=== PATIENT | female | born 1990 | race Caucasian/White ===

== ENCOUNTER → 2018-05-08 | Outpatient (CLI) | payer OTHER | LOC: FIMAGING 07:58 | PROVIDERS: ATTEND Ophthalmology | DX: K80.20 Calculus of gallbladder without cholecystitis without obstruction (principal); K83.8 Other specified diseases of biliary tract ==

== ENCOUNTER 2018-06-09 12:07 | Inpatient (IN) | payer OTHER ==
[2018-06-09] MEDS ORDERED: NS 1,000 ML IV ONE (13:27)
[2018-06-09] MEDS ORDERED: FAMOTIDINE 20 MG/NACL 50 ML IV ONE (13:27)
[2018-06-09] MEDS ORDERED: ONDANSETRON 4 MG/2 ML VIAL IVP PRN ×2 (13:27→15:27)
--- NOTE | 2018-06-09 13:29 | EDPHY ---
General Time Seen by Provider: 06/09/18 13:28 Narrative: CLINICAL IMPRESSION: Crohn's, sigmoid jejunal fistula, small bowel strictures with inflammation ASSESSMENT/PLAN: Patient is a 28-year-old female with no significant medical history presents to the emergency department with 6 days of intermittent epigastric and generalized abdominal cramping as well as nausea, fever and loose stools. Patient is afebrile, she is not toxic appearing. CBC revealed leukocytosis of 10,000. BMP grossly unremarkable. negative. 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 History and physical examination is consistent with acute Crohn's with associated stricture and fistula. Case was discussed with her General Surgeon Dr. Carrion, Gastroenterology Dr. Rm Calderon as well as hospitalist Dr. Blanchard. The patient will be admitted to the hospitalist service for further observation and management. On repeat examination and prior to transfer to the floor her pain was escalating however her abdomen was soft with no peritoneal signs. She was given a dose of pain medication with improvement of her discomfort. The patient otherwise remained hemodynamically stable. DIFFERENTIAL DX: Abdominal pain including but not limited to appendicitis, cholecystitis, gastritis and urinary tract infection. ED COURSE: 1335: Case discussed with Dr. Byrd 1433: Case discussed with Dr. Darling, findings suggestive of Crohn's. She has multifocal strictures, sigmoid jejunal fistula as well as stricture in the hepatic flexure with inflammation. 1435: Case discussed with Dr. Carrion, he will follow. 1438: Discussed findings with patient, her abdomen is soft with diffuse nonfocal tenderness to palpation. No evidence of a surgical abdomen. 1440: Case discussed with Dr. Blanchard, she will be the admitting physician. 1448: Gastroenterology paged, discussed case with Dr. Rm Calderon, he will continue to follow patient as well. CHIEF COMPLAINT: Abdominal pain, nausea HPI: Patient is a 28-year-old female with no significant medical history who presents to the emergency department with epigastric cramping and generalized abdominal pain. Patient reports she is on day 6 of intermittent epigastric pain with generalized discomfort. Pain is described as both sharp and crampy, it waxes and wanes in intensity and at times is completely gone. She does report a similar episode several months prior, lasted several days however resolved on its own. It has come and gone several other times. She was diagnosed with a large gallstone and subsequently had a laparoscopic cholecystectomy performed by Dr. Carrion. She was symptom free for approximately 2 weeks and then 6 days prior had a sudden onset of epigastric and colicky generalized abdominal pain. She does report a temperature of a 100 degrees last , nausea however no vomiting. She denies any episodes of ever having bloody stool. Over the last several days she was experiencing constipation and now is experiencing multiple liquid stools per day. She denies any urinary symptoms to include dysuria, hematuria or frequency. Last menstrual period was about 3 and half weeks ago, normal. She denies any pelvic pain, vaginal pain or vaginal bleeding. PMH: Denies Pertinent Past Surgical History: Lap choly Family History: Not contributory Social History: Denies cigarette smoking or illicit drug use REVIEW OF SYSTEMS: All other systems negative Constitutional: Fever, decreased appetite. Eyes: No discharge, vision change ENT: No sore throat, congestion, ear pain. Cardiovascular: No chest pain, no palpitations. Respiratory: No cough, no shortness of breath. Gastrointestinal: Abdominal pain, nausea, diarrhea. Genitourinary: No hematuria, dysuria, flank pain, pelvic pain Musculoskeletal: No back pain, joint swelling, joint pain, myalgias. Skin: No rashes, color change. Neurological: No headache, dizziness, weakness. PHYSICAL EXAM: General Appearance: Alert, mildly uncomfortable appearing however not toxic- appearing.. HENT: Normocephalic, atraumatic. Bilateral external ears are normal. Bilateral tympanic membranes are normal with pearly jackson reflex. Nares are clear, mucosa is pink. Oropharynx is clear, uvula is midline. There is no tonsillar enlargement or exudate. Eyes: PERRLA, no acute vision change, nystagmus, swelling, discharge, pain or photosensitivity. Conjunctiva pink, no pallor or injection Neck: Supple, nontender, no lymphadenopathy. Respiratory: There are no retractions, lungs are clear to auscultation. Cardiac: Mild tachycardia, no murmurs or gallops. Gastrointestinal: Patient's abdomen is soft and nondistended. She has diffuse, nonfocal tenderness to palpation without rebound or guarding. Bowel sounds are present. Neurological: Alert and oriented x 3, CN 2-12 grossly intact. Skin: Warm, dry, no rashes, no nodules on palpation. Musculoskeletal: Extremities are symmetrical, full range of motion, no tenderness, deformity, swelling, or erythema. Psychiatric: Patient is oriented X 3, there is no agitation. MEDICAL DECISION MAKING: Patient was seen independently. Secondary supervising physician at time of evaluation was Dr. Byrd. Diagnosis: Crohn's with sigmoid jejunal fistula and multiple strictures. New, requires workup Summary: See Assessment and Plan for summary of ED visit Clinical lab tests: ordered / reviewed. Independent visualization of images, tracing, or specimens: Yes. Decision to obtain medical records or history from someone other than the patient: No Review / Summarize previous medical records: Yes Discussed patient with another provider: Yes, Dr. Byrd, Dr. Blanchard and Dr. Carrion Patient Progress: Stable, admit. - Diagnostics Imaging Results: Imaging Impressions Abdomen X-Ray 06/09/18 13:28 Impression: Normal bowel pattern. Mild constipation. No acute process. Abdomen CT 06/09/18 13:33 Impression: 1. Crohn's disease with multiple areas of bowel thickening and stricture involving the distal jejunum, mid sigmoid, and colonic hepatic flexure region with associated sigmoid-jejunal fistula in the left midabdomen. 2. No CT evidence of appendicitis or drainable abscess. 3. Prior cholecystectomy. Findings and recommendations discussed with Emergency Department physician, JOSUE Lomax at 1436 hours on June 09, 2018. Final report concurs with initial preliminary interpretation. Cosign: Dr. Rodrigo Pierce. - History Smoking Status: Never smoked - Objective Vital Signs: Initial Vital Signs Temperature (C) 37.3 C 06/09/18 12:21 Heart Rate 104 H 06/09/18 12:21 Respiratory Rate 18 04/16/19 12:21 Blood Pressure 99/74 L 06/09/18 12:21 O2 Sat (%) 96 06/09/18 12:21 O2 Delivery Mode Room Air Allergies/Adverse Reactions: morphine Allergy (Verified 06/09/18 12:21) Home Medications: Medication Instructions Recorded Dicyclomine 06/09/18 Junel 1 mg-20 Mcg Tablet 06/09/18 Laboratory Results: Laboratory Results 06/09/18 13:06 06/09/18 13:06 06/09/18 06/09/18 06/09/18 13:06 13:06 13:06 WBC 10.38 10^3/uL H 10^3/uL (3.80-9.50) RBC 4.79 10^6/uL 10^6/uL (4.18-5.33) Hgb 14.1 g/dL g/dL (12.6-16.3) Hct 42.9 % % (38.0-47.0) MCV 89.6 fL fL (81.5-99.8) MCH 29.4 pg pg (27.9-34.1) MCHC 32.9 g/dL g/dL (32.4-36.7) RDW 12.5 % % (11.5-15.2) Plt Count 691 10^3/uL H 10^3/uL (150-400) MPV 7.9 fL L fL (8.7-11.7) Neut % (Auto) 87.1 % H % (39.3-74.2) Lymph % (Auto) 5.4 % L % (15.0-45.0) [place] % (Auto) 6.6 % % (4.5-13.0) Eos % (Auto) 0.3 % L % (0.6-7.6) Baso % (Auto) 0.3 % % (0.3-1.7) Nucleat RBC Rel Count 0.0 % % (0.0-0.2) Absolute Neuts (auto) 9.04 10^3/uL H 10^3/uL (1.70-6.50) Absolute Lymphs (auto) 0.56 10^3/uL L 10^3/uL (1.00-3.00) Absolute Monos (auto) 0.69 10^3/uL 10^3/uL (0.30-0.80) Absolute Eos (auto) 0.03 10^3/uL 10^3/uL (0.03-0.40) Absolute Basos (auto) 0.03 10^3/uL 10^3/uL (0.02-0.10) Absolute Nucleated RBC 0.00 10^3/uL 10^3/uL (0-0.01) Immature Gran % 0.3 % % (0.0-1.1) Immature Gran # 0.03 10^3/uL 10^3/uL (0.00-0.10) RBC/WBC/PLT Morphology TNP Platelet Estimate TNP Sodium 136 mEq/L mEq/L (135-145) Potassium 3.9 mEq/L mEq/L (3.5-5.2) Chloride 102 mEq/L mEq/L (97-110) Carbon Dioxide 18 mEq/l L mEq/l (22-31) Anion Gap 16 mEq/L H mEq/L (6-14) BUN 12 mg/dL mg/dL (7-23) Creatinine 0.8 mg/dL mg/dL (0.6-1.0) Estimated GFR > 60 Glucose 77 mg/dL mg/dL (70-100) Calcium 9.3 mg/dL mg/dL (8.5-10.4) Total Bilirubin 0.6 mg/dL mg/dL (0.1-1.4) Conjugated Bilirubin 0.5 mg/dL mg/dL (0.0-0.5) Unconjugated Bilirubin 0.1 mg/dL mg/dL (0.0-1.1) AST 18 IU/L IU/L (14-46) ALT 27 IU/L IU/L (9-52) Alkaline Phosphatase 93 IU/L IU/L (38-126) Total Protein 7.0 g/dL g/dL (6.3-8.2) Albumin 3.8 g/dL g/dL (3.5-5.0) Lipase 35 IU/L IU/L (23-300) Beta HCG, Qual NEGATIVE Medications Given: Discontinued Medications Fentanyl (Sublimaze) 50 mcg IVP ONCE ONE Stop: 06/09/18 15:10 Last Admin: 06/09/18 15:26 Dose: 50 mcg Famotidine/Sodium Chloride (Pepcid 20 Mg (Premix)) 50 mls @ 200 mls/hr IV EDNOW ONE Stop: 06/09/18 13:41 Last Admin: 06/09/18 13:50 Dose: 50 mls Sodium Chloride (Ns) 1,000 mls @ 0 mls/hr IV ONCE ONE PRN Reason: Wide Open Stop: 06/09/18 13:28 Last Admin: 06/09/18 13:50 Dose: 1,000 mls Departure - Departure Disposition: [facility] Inpatient Acute Clinical Impression: Small bowel fistula, Small bowel stricture Crohns disease Qualifiers: Gastrointestinal tract location: unspecified location Digestive disease complication type: unspecified complication Qualified Code(s): K50.919 - Crohn' s disease, unspecified, with unspecified complications
[2018-06-09 13:43] LABS: PLATELET COUNT 691 10^3/uL (150-400)
[2018-06-09] MEDS ORDERED: IOPAMIDOL (ISOVUE-300) 100 ML BTL ONE (13:46)
[2018-06-09] MEDS ORDERED: fentaNYL 100 MCG/2 ML INJ IVP ONE (15:09)
--- NOTE | 2018-06-09 15:26 | PDGENHP ---
History and Physical History and Physical: Chief complaint: Abdominal pain History of present illness: The pt is a 28yo F w/ PMH diffuse abdominal pain who p/w severe abdominal pain x 6 days. Pain is described as crampy, sharp, and aching. Pain is worse in LLQ. She has been constipated in the last few days, but she has also had very poor oral intake because she is afraid that eating will worsen the pain. She is not sure what makes the pain better or worse. She has tried taking dicyclomine and CBD chews for the pain, which helped a little in the beginning. She has been afraid to try Percocet because it might constipate her. About a month ago, she underwent a lap cholecystectomy for cholecystitis. She has also seen a track grinder in the outpatient setting , who has scheduled a colonoscopy for her this Friday. In the ED, CT abd/pelvis showed inflammatory changes suggestive of Crohn's disease. Pertinent ROS: +mouth sores, intermittent. Past medical history: Biliary colic, chronic diarrhea Past surgical history: Tonsillectomy, wisdom teeth removal, recent cholecystectomy. Medications: Oral contraceptive. Allergies: Morphine. Social history: Nonsmoker. Drinks alcohol socially. Family history: No significant family medical history. Review of systems: 10 point pertinent review of systems was conducted and is negative except per HPI. Physical exam: Vitals: Reviewed General: The patient is an overweight female who is A&Ox3 and in no acute distress. HEENT: normocephalic, extraocular movements intact, conjunctivae clear, no lesions on face or pinnae. Nares and oral mucosa pink and moist. Neck: trachea midline, no visible masses, no external lesions. CV: +S1/S2, reg rate and rhythm. No murmurs/rubs/gallops. Resp: unlabored breathing, lungs clear to auscultation w/o rales, rhonchi, or wheezing. Abd: soft and nondistended, bowel sounds present. Nontender to palpation throughout. Musculoskeletal: Normal gait. Neuro: cranial nerves II - XII grossly intact. Intact gross motor and sensory function. Psych: appropriate mood/affect. Skin: No rash or ecchymoses or petechiae. : no suprapubic tenderness or CVA tenderness. Heme/lymph: No peripheral edema. Labs: WBC 10.4 hemoglobin 14 platelets 691. Sodium 136 potassium 3.9 CO2 18 anion gap 16 BUN 12 creatinine 0.8 glucose 77. Calcium 9.3. Total bilirubin 0.6 conjugated bilirubin 0.5 AST 18 ALT 27 alk-phos 93 total protein 7 albumin 3.8 lipase 35. Beta HCG negative. Other Data: Abdomen x-ray: Personally interpreted-no acute abdominal process. CT abdomen/pelvis with contrast: 1. Crohn's disease with multiple areas of bowel thickening and stricture involving the distal jejunum, mid sigmoid, and colonic hepatic flexure region with associated sigmoid -jejunal fistula in the left midabdomen. 2. No CT evidence of appendicitis or drainable abscess. 3. Prior cholecystectomy. Impression and plan: Abdominal pain, intermittent Acute flare of Crohn disease (new Dx) Nausea Loss of appetite Acute dehydration Constipation -Pt does not have peritonitis or appear to have life-threatening complications of Crohn disease. -Methylprednisolone 60mg IV x 1 dose. -clear liquids, IV fluids. -GI consulted by ED. Deferring additional steroid dosing to GI. -Gen Surg consulted by ED. I have d/w Dr. Carrion who provided additional patient Hx. -Bowel protocol - prn laxatives. -VTE ppx - Lovenox. -Code status - full. Observation status.
[2018-06-09] MEDS ORDERED: HYDROCODONE/APAP 5/325 TAB PO PRN (15:27)
[2018-06-09] MEDS ORDERED: PROMETHAZINE HCL 25 MG/ML INJ IVP PRN (15:27)
[2018-06-09] MEDS ORDERED: HYDROmorphONE/DILAUDID 1 MG/ML INJ IVP PRN ×2 (15:27→19:25)
[2018-06-09] MEDS ORDERED: NS W/ 20 KCl/L 1,000 ML IV SCH (15:30)
[2018-06-09] MEDS ORDERED: POLYETHYLENE GLYCOL 3350 17 GM PKT PO PRN (15:31)
[2018-06-09] MEDS ORDERED: BISACODYL 10 MG SUPP PR PRN (15:31)
[2018-06-09] MEDS ORDERED: MAGNESIUM HYDROXIDE 30 ML UDCUP PO PRN (15:31)
[2018-06-09] MEDS ORDERED: LACTULOSE 20 GM/30 ML UDCUP PO PRN (15:31)
[2018-06-09] MEDS ORDERED: methylPREDNISolone SOD SUCC 125 MG/2 ML VIAL IVP ONE ×2 (19:17→19:35)
[2018-06-09] MEDS ORDERED: PEG 3350/NA SULF,BICARB,CL/KCL (GAVILYTE-G) 4000 ML BTL PO ONE ×2 (19:33→21:45)
[2018-06-09] MEDS ORDERED: LORazepam 2 MG/ML INJ IVP PRN (19:37)
[2018-06-09] MEDS ORDERED: HYDROmorphONE/DILAUDID 1 MG/ML INJ IVP ONE (19:43)
[2018-06-09] MEDS ORDERED: D5W 1/2 NS W/ 20 KCl/L 1,000 ML IV SCH (19:45)
[2018-06-09] MEDS: ONDANSETRON DISINTEGRATING 4 MG TAB PO PRN (20:02)
--- NOTE | 2018-06-09 20:48 | GCON ---
[f rep st] CONSULTATION GI INPATIENT CONSULTATION. DATE OF CONSULTATION: 06/09/2018 I was kindly requested to see the patient by Dr. Zina Blanchard in consultation for a chief complaint of an abnormal x-ray of the GI tract. She is a 28-year- old white female who was admitted to the hospital after 6 days of severe abdominal pain. The pain can be crampy, sharp or an ache. It is somewhat generalized, but can be worse in the supraumbilical area or the left lower quadrant. With the pain, she has had a very poor oral intake over the last several days. For the last 10 years, she has had some digestive symptoms, including mostly diarrhea or loose stool, but occasional constipation. She can have bloating, cramps. She can have occasional skin rash. Recently, she was found to have a large gallstone and underwent cholecystectomy about 1 month ago. She saw recently Shari Li, a GI nurse practitioner. A colonoscopy was scheduled for this Friday. In the emergency department, CT scan of the abdomen and pelvis with IV contrast showed multiple areas of inflammatory bowel-wall thickening and stricturing, including distal jejunum, mid sigmoid, hepatic flexure, and also mention of a fistula from the sigmoid colon to either the jejunum or ileum. The stricture was in the left mid abdomen. No abscesses seen. Bile ducts are normal. PAST MEDICAL HISTORY: 1. As above. 2. Tonsillectomy. 3. [place] teeth removal. 4. Otherwise, noncontributory. ALLERGIES: Include morphine. INPATIENT MEDICATIONS: Include Lovenox and IV fluids. SOCIAL HISTORY: She drinks alcohol only socially. Her boyfriend's name is Jorge. FAMILY HISTORY: Negative for similar abdominal pain. REVIEW OF SYSTEMS: Positive pertinent review of systems as per my HPI. Otherwise, a complete review of systems is negative. PHYSICAL EXAM: CONSTITUTIONAL: Nontoxic-appearing. VITAL SIGNS: Stable. SKIN: Warm, dry. EYES: Pupils equal, round, and reactive to light and accommodation. EARS, NOSE, MOUTH, and THROAT: Oropharynx without masses, moist mucosa. CARDIOVASCULAR: Normal S2, normal PMI. RESPIRATORY: Lungs clear to auscultation and percussion anteriorly. GASTROINTESTINAL: Abdomen with mildly severe tenderness throughout, but especially in the left lower quadrant. No masses felt. NEUROLOGIC: Grossly nonfocal, cranial nerves grossly intact. Orientation, insight appropriate. MUSCULOSKELETAL: Strength grossly normal throughout, normal station. LABORATORIES: Include the above. White count 10.4 thousand, platelet count 691 ,000. Normal CMP. CRP 53. Beta HCG negative. Normal TSH. ASSESSMENT: Abdominal pain. Based on her CT scan findings, suspect Crohn ileocolitis, along with a [id number] bowel fistula. I suspect Crohn's may be responsible for some of her more nonspecific digestive symptoms over the last 10 years, as well as her past chronic anemia. PLAN: 1. Solu-Medrol 125 mg IV push as a bolus, and 30 mg IV piggyback q.12. 2. IV fluids. 3. Ativan as needed for anxiety or insomnia. 4. We will do a gentle prep tonight, and proceed with a "long" flexible sigmoidoscopy with IV sedation tomorrow. With this, we could reach the sigmoid abnormality, and just visually confirm that this is indeed Crohn's, as well as confirm this with a tissue diagnosis. Besides Fentanyl and Versed, we will use Benadryl. 5. Pending the above, I suspect she will need either azathioprine or a biologic to help keep her in remission. We will discuss these options with her after her procedure. 6. The case was discussed with Dr. Blanchard. Thank you for allowing me to help in the management of this patient. Copy requested to: Dr. Akash Li /[id number]/MODL MTDD
[2018-06-09] MEDS: methylPREDNISolone SOD SUCC 40 MG/ML VIAL IVP SCH (21:18)
[2018-06-10] MEDS ORDERED: NS 500 ML IV ONE ×2 (04:48→09:00)
[2018-06-10 05:39] LABS: PLATELET COUNT 550 10^3/uL (150-400)
[2018-06-10] MEDS ORDERED: LORazepam 2 MG/ML INJ IVP PRN (07:24)
[2018-06-10] MEDS: ACETAMINOPHEN 325 MG TAB PO PRN ×2 (08:01→14:06)
[2018-06-10] MEDS: methylPREDNISolone SOD SUCC 40 MG/ML VIAL IVP SCH ×2 (08:01→20:10)
[2018-06-10] MEDS: ENOXAPARIN 40 MG/0.4 ML SYR SC SCH (08:02)
[2018-06-10] MEDS ORDERED: fentaNYL 100 MCG/2 ML INJ ONE (09:45)
[2018-06-10] MEDS ORDERED: MIDAZOLAM 2 MG/2 ML VIAL ONE (09:45)
[2018-06-10] MEDS ORDERED: fentaNYL 100 MCG/2 ML INJ IVP ONE (10:17)
[2018-06-10] MEDS ORDERED: MIDAZOLAM 2 MG/2 ML VIAL IVP ONE ×2 (10:18)
--- NOTE | 2018-06-10 10:45 | GIREPORT ---
[facility] Surgical Services - Endoscopy Department Patient Name: Cristal Guevara Procedure Date: 06/10/2018 9:47 AM Patient Type: Inpatient Attending MD/ ER Physician: Rm Calderon MD Procedure: Flexible Sigmoidoscopy Indications: Abdominal pain somewhat better, after initiating steroids. Flex sig now , to confirm Crohn's. Providers: Rm Calderon MD, [facility] Referring MD: [facility] Hospitalist service Medicines: Fentanyl 100 micrograms IV, Midazolam 5 mg IV, Diphenhydramine 50 mg IV Complications: No immediate complications. Description of Procedure: After obtaining informed consent, the endoscope was passed under direct vision. Throughout the procedure, the patient's blood pressure, pulse, and oxygen saturations were monitored continuously. The Colonoscope was introduced through the anus and advanced to the descending colon. The Endoscope was introduced through the and advanced to. Findings: Perianal exam essentially normal. A fistula opening was found in the rectum and in the sigmoid (22 cm in location), with the former having some whitish discharge observed. At 25 cm, narrowing of the sigmoid from nodular, heaped up tissue. Not able to get the pediatric colonoscope through. Switched to upper endoscope, and able to traverse. Biopsies were taken with a cold forceps for histology from all of the a august. Estimated Blood Loss: none. Post Op Diagnosis: - Crohn's ileocolitis, with fistulous disease and secondary stricturing . Recommendation: - Await pathology results, but mostly academic. - feed - buffcap IV - cont. IV steroids for today - I will discuss with her later adding a biologic and azathioprine. Hopefully, the above can be resolved over time with just medical therap y, and not require future surgery for more "cold' obstructive strictural disease. Thank you for allowing me to help in the management of this patient. Attending Participation: I personally performed the entire procedure. Yumiko Abdalla MD Rm Calderon MD 06/10/2018 10:45:07 AM This report has been signed electronicallyPeter MD Yumiko Number of Addenda: 0 Note Initiated On: 06/10/2018 9:47 AM [email or web address]
--- NOTE | 2018-06-10 11:55 | HOSPPROG ---
Hospitalist Progress Note Assessment/Plan: Crohn's ileocolitis - discussed with Dr. Calderon. Colonoscopy today showed fistula and stricturing, pathology pending. -cont IV solumedrol -GI to address possibly starting biologic agent prior to dc -diet as tolerated Thrombocytosis - likely APR in setting of crohn's, plts trending down -follow Volume depletion - improved with IVF's, now taking po Full code Dispo - cont inpt, CM to consult to provide resources for outpt support Subjective: Pt feels ok, a little abdominal discomfort after c-scope this am. No fevers/chills. No CP or SOB. She is anxious about her diagnosis and worried about outpt management. Objective: Vital Signs Temp Pulse Resp BP Pulse Ox 36.7 C 75 12 99/59 L 98 06/10/18 11:01 06/10/18 09:48 06/10/18 10:30 06/10/18 10:46 06/10/18 11:01 Laboratory Results 06/10/18 05:03 06/10/18 05:03 06/09/18 06/10/18 06/11/18 05:59 05:59 05:59 Intake Total 3438 300 Output Total 400 250 Balance 3038 50 - Physical Exam Constitutional: no apparent distress Eyes: PERRL Ears, Nose, Mouth, Throat: moist mucous membranes Cardiovascular: regular rate and rhythym Respiratory: no respiratory distress, clear to auscultation Gastrointestinal: normoactive bowel sounds, soft, non-tender abdomen Skin: warm Musculoskeletal: full muscle strength Neurologic: AAOx3 Psychiatric: interacting appropriately, anxious ICD10 Worksheet Patient Problems: Problems Problem Status Onset Crohns disease Acute Small bowel fistula Acute Small bowel stricture Acute
[2018-06-10] MEDS ORDERED: diphenhydrAMINE 50 MG CAP PO PRN (12:30)
[2018-06-10] MEDS ORDERED: ACETAMINOPHEN 325 MG TAB PO ONE (12:30)
[2018-06-10] MEDS ORDERED: NS 1,000 ML IV SCH (12:30)
[2018-06-10] MEDS ORDERED: ACETAMINOPHEN 325 MG TAB PO PRN (12:30)
[2018-06-10] MEDS ORDERED: INFLIXIMAB-DYYB 300 MG in NS 250 ML IV ONE (12:30)
[2018-06-10] MEDS ORDERED: EPINEPHrine 1 MG/ML INJ SC PRN (12:30)
--- NOTE | 2018-06-10 12:35 | SOAPPROG ---
SOAP Progress Note Assessment/Plan: Assessment/Plan: Discussed with her the results of her colonoscopy. We will begin azathioprine, remicade, and give while she's here in the hospital. Depending, she might require as an outpt. a course of cipro/flagyl, for her fistulous disease. 06/10/18 12:34 Subjective: cc: Crohn's Doing well post procedure. Feeling better than yesterday, with less pain. No rigors, chills, sweats. Objective: Vital Signs Temp Pulse Resp BP Pulse Ox 36.6 C 60 16 96/69 L 96 06/10/18 12:00 06/10/18 12:00 06/10/18 12:00 06/10/18 12:00 06/10/18 12:00 Laboratory Results 06/10/18 05:03 06/10/18 05:03 06/09/18 06/10/18 06/11/18 05:59 05:59 05:59 Intake Total 3438 300 Output Total 400 250 Balance 3038 50 Physical Exam - Physical Exam General Appearance: WD/WN, alert, no apparent distress EENT: PERRL/EOMI, normal ENT inspection, pharynx normal, TMs normal Neck: non-tender, full range of motion, supple, normal inspection Respiratory: chest non-tender, lungs clear, normal breath sounds Cardiac/Chest: normal peripheral pulses, regular rate, rhythm Peripheral Pulses: 2+: carotid (R), carotid (L), femoral (R), femoral (L), dorsalis-pedis (R), dorsalis-pedis (L) Abdomen: normal bowel sounds, non-tender, soft Pelvic Exam: deferred Rectal: deferred Back: Normal inspection Skin: normal color, warm/dry Lymphatic: no adenopathy Extremities: normal range of motion, non-tender, normal inspection, normal capillary refill Neuro/Psych: no motor/sensory deficits, alert, normal mood/affect, oriented x 3 ICD10 Worksheet Patient Problems: Problems Problem Status Onset Crohns disease Acute Small bowel fistula Acute Small bowel stricture Acute
--- NOTE | 2018-06-10 13:13 | PDMN ---
Medical Necessity Medical necessity: [facility] M565 Inflammatory Bowel Disease, A-2 days: 28 yo w/ c/o severe abd pain. Eval reveals new dx of Crohn's disease. Initially OBS for workup/tx, IVF, IV steroids, GI consult and sigmoid scope. Scope confirms Crohn 's ilecolitis w/ fistulous disease and secondary stricturing. Path pending. Meets [facility] IP criteria for M565 w/ Fistulizing Crohn disease. Cont IV steroids, GI considering starting biologic agent prior ro d/c. Change to IP status @1055 per MD order.
[2018-06-10] MEDS: ONDANSETRON DISINTEGRATING 4 MG TAB PO PRN (16:02)
[2018-06-10] MEDS: azaTHIOprine 50 MG TAB PO SCH (16:06)
--- NOTE | 2018-06-10 16:58 | ASMTCMCOM ---
CM Note CM Note Notes: Met with patient to discuss outpatient resources. Gave recommendations for therapist that will take her insurance and discussed persuing practioner in functional medicine to address whole body nutrional issues. DC Plan: Independent Date Signed: 06/10/2018 04:57 PM Electronically Signed By:Natalia Stacy RN
--- NOTE | 2018-06-11 08:40 | SOAPPROG ---
EVEL[facility] Progress Note Assessment/Plan: Assessment: 28yo F c Crohn's - VSS, HDs - abdominal exam is better today - results of c-scope reviewed. Starting maintenance meds. Hopefully will be effective for disease and not need surgery - abdomen remains soft, has some bowel sounds - wants to go home, would like to see her eat solid food before dc. 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
[2018-06-11] MEDS: methylPREDNISolone SOD SUCC 40 MG/ML VIAL IVP SCH (09:34)
[2018-06-11] MEDS: azaTHIOprine 50 MG TAB PO SCH (09:34)
[2018-06-11] MEDS: ENOXAPARIN 40 MG/0.4 ML SYR SC SCH (09:35)
[2018-06-11] MEDS ORDERED: ALPRAZolam 0.25 MG TAB PO PRN (09:42)
--- NOTE | 2018-06-11 11:20 | HOSPPROG ---
Hospitalist Progress Note Assessment/Plan: Crohn's ileocolitis - Colonoscopy yest showed fistula and stricturing, pathology pending. Surgery consult appreciated, hoping to avoid surgery. Received Remicade infusion yest, started Azathioprine. -transitioned from IV solumedrol to po prednisone today, monitor -cont azathioprine per GI -diet as tolerated, still not taking much solid food Rectal bleeding - had small amt of blood in stool this am, note h/o hemorrhoids. -monitor Thrombocytosis - likely APR in setting of crohn's, plts trending down Volume depletion - improved with IVF's, now taking po, but difficulty with solids Full code Dispo - cont inpt, possible dc in am if taking po better Subjective: Pt remains a bit distressed over her situation. She is tolerating liquids well, but reports increased pain after a few bites of solid food this am. No N/V. REports small amt of blood in stool this am. No fevers/chills. Objective: Vital Signs Temp Pulse Resp BP Pulse Ox 36.7 C 62 16 113/70 96 06/11/18 08:41 06/11/18 08:41 06/11/18 08:41 06/11/18 08:41 06/11/18 08:41 06/10/18 06/11/18 06/12/18 05:59 05:59 05:59 Intake Total 600 Output Total 250 Balance 350 - Physical Exam Constitutional: no apparent distress Eyes: PERRL Ears, Nose, Mouth, Throat: moist mucous membranes Cardiovascular: regular rate and rhythym Respiratory: no respiratory distress, clear to auscultation Gastrointestinal: other (soft, nd, mild diffuse TTP, no r/r/g, +BS) Skin: warm Musculoskeletal: full muscle strength Neurologic: AAOx3 Psychiatric: interacting appropriately ICD10 Worksheet Patient Problems: Problems Problem Status Onset Crohns disease Acute Small bowel fistula Acute Small bowel stricture Acute
--- NOTE | 2018-06-11 12:43 | SOAPPROG ---
SOAP Progress Note Assessment/Plan: Assessment/Plan: Crohn's ileocolitis, with fistulas. Abdominal pain continues to do better, with steroids. Received remicade yesterday. On azathioprine. Tolerating p.o. Some mild rectal bleeding, which might be from her rectal fistula. Some dyspepsia, with the steroids. - change to oral prednisone - ranitidine or pepcid prn - if doing well tomorrow, suspect can d/c home. As an outpt., recommend: - prednisone 40 mg daily for a week, then 35 mg daily for a week, then 30 mg daily for a week, and so on, until none - azathioprine 100 mg daily - xanax prn - rantidine 300 mg p.o. bid prn - f/u with her PCP, Emerita Fair, for anxiety treatment I will otherwise arrange her outpt. f/u with me, blood work on the azathioprine , f/u on her colon bxs, as well as her second remicade loading dose in two weeks. Thanks! 06/11/18 12:44 Subjective: cc: Crohn's Pain better, 1-2/10 in intensity. Some dyspepsia and heartburn. No rigors, chills, sweats. Tolerating p.o. relatively well. Objective: Vital Signs Temp Pulse Resp BP Pulse Ox 36.7 C 62 16 113/70 96 06/11/18 08:41 06/11/18 08:41 06/11/18 08:41 06/11/18 08:41 06/11/18 08:41 06/10/18 06/11/18 06/12/18 05:59 05:59 05:59 Intake Total 600 Output Total 250 Balance 350 Colon path pending Physical Exam - Physical Exam General Appearance: WD/WN, alert, no apparent distress EENT: PERRL/EOMI, normal ENT inspection, pharynx normal, TMs normal Neck: non-tender, full range of motion, supple, normal inspection Respiratory: chest non-tender, lungs clear, normal breath sounds Cardiac/Chest: normal peripheral pulses, regular rate, rhythm Peripheral Pulses: 2+: carotid (R), carotid (L), femoral (R), femoral (L), dorsalis-pedis (R), dorsalis-pedis (L) Abdomen: normal bowel sounds, non-tender, soft Pelvic Exam: deferred Rectal: deferred Back: Normal inspection Skin: normal color, warm/dry Lymphatic: no adenopathy Extremities: normal range of motion, non-tender, normal inspection, normal capillary refill Neuro/Psych: no motor/sensory deficits, alert, normal mood/affect, oriented x 3 ICD10 Worksheet Patient Problems: Problems Problem Status Onset Crohns disease Acute Small bowel fistula Acute Small bowel stricture Acute
[2018-06-11] MEDS: predniSONE 20 MG TAB PO SCH (15:09)
[2018-06-12] MEDS: ENOXAPARIN 40 MG/0.4 ML SYR SC SCH (08:38)
[2018-06-12] MEDS: predniSONE 20 MG TAB PO SCH (08:39)
[2018-06-12] MEDS: azaTHIOprine 50 MG TAB PO SCH (08:40)
--- NOTE | 2018-06-12 09:00 | HOSPPROG ---
Hospitalist Progress Note Assessment/Plan: #Crohn's ileocolitis - scope showed fistula and stricturing, pathology pending. -Surgery consult appreciated, hoping to avoid surgery. -s/p Remicade infusion 06/10, started Azathioprine -now on prednisone -ADAT #Rectal bleeding - had small amt of blood in stool this am, note h/o hemorrhoids. #Thrombocytosis - likely APR in setting of crohn's, plts trending down Subjective: abd pain improved Objective: Vital Signs Temp Pulse Resp BP Pulse Ox 36.9 C 59 L 16 110/69 96 06/12/18 08:00 06/12/18 08:00 06/12/18 08:00 06/12/18 08:00 06/12/18 08:00 06/11/18 06/12/18 06/13/18 05:59 05:59 05:59 Intake Total 600 400 Output Total 250 2800 Balance 350 -2400 - Physical Exam Constitutional: no apparent distress Eyes: PERRL Ears, Nose, Mouth, Throat: moist mucous membranes Cardiovascular: regular rate and rhythym Respiratory: no respiratory distress Gastrointestinal: normoactive bowel sounds, soft, non-tender abdomen Skin: warm Musculoskeletal: full muscle strength Neurologic: AAOx3, CN II-XII Intact Psychiatric: flat affect ICD10 Worksheet Patient Problems: Problems Problem Status Onset Crohns disease Acute Small bowel fistula Acute Small bowel stricture Acute
--- NOTE | 2018-06-12 09:56 | SOAPPROG ---
SOAP Progress Note Assessment/Plan: Assessment/Plan: Crohn's ileocolitis, with fistulas. Abdominal pain continues to do better. On azathioprine. Tolerating p.o. Some dyspepsia, with the steroids. Recommend: - d/c home - begin her on a daily anti-anxiety medicine that is nonaddicting (she will eventually be seeing Dr. Fair, but would be good to get this started, if there's a delay). As per hospitalist. - outpt ensure - prednisone 40 mg daily for a week, then 35 mg daily for a week, then 30 mg daily for a week, and so on, until none - azathioprine 100 mg daily - xanax prn - rantidine 300 mg p.o. bid prn - f/u with her PCP, Emerita Fair, for anxiety treatment I will otherwise arrange her outpt. f/u with me, blood work on the azathioprine , f/u on her colon bxs, as well as her second remicade loading dose in two weeks. Thanks! 06/12/18 09:57 Subjective: cc: Crohn's Pain continues to be relatively minimal, on the oral steroids. Some bloating with meals. Tolerating food. No rigors, chills, sweats. Objective: Vital Signs Temp Pulse Resp BP Pulse Ox 36.9 C 59 L 16 110/69 96 06/12/18 08:00 06/12/18 08:00 06/12/18 08:00 06/12/18 08:00 06/12/18 08:00 06/11/18 06/12/18 06/13/18 05:59 05:59 05:59 Intake Total 600 400 Output Total 250 2800 Balance 350 -2400 Physical Exam - Physical Exam General Appearance: WD/WN, alert, no apparent distress EENT: PERRL/EOMI, normal ENT inspection, pharynx normal, TMs normal Neck: non-tender, full range of motion, supple, normal inspection Respiratory: chest non-tender, lungs clear, normal breath sounds Cardiac/Chest: normal peripheral pulses, regular rate, rhythm Peripheral Pulses: 2+: carotid (R), carotid (L), femoral (R), femoral (L), dorsalis-pedis (R), dorsalis-pedis (L) Abdomen: normal bowel sounds, non-tender, soft Pelvic Exam: deferred Rectal: deferred Back: Normal inspection Skin: normal color, warm/dry Lymphatic: no adenopathy Extremities: normal range of motion, non-tender, normal inspection, normal capillary refill Neuro/Psych: no motor/sensory deficits, alert, normal mood/affect, oriented x 3 ICD10 Worksheet Patient Problems: Problems Problem Status Onset Crohns disease Acute Small bowel fistula Acute Small bowel stricture Acute
[2018-06-12 12:12] VITALS: BP 103/66
--- NOTE | 2018-06-12 12:32 | GDS ---
[f rep st] DISCHARGE SUMMARY DISCHARGE DIAGNOSES: 1. Crohn's ileocolitis with fistula. 2. Abdominal pain. 3. Anxiety. 4. Rectal bleeding. 5. Thrombocytosis. CONSULTATIONS: GI. PROCEDURES: Colonoscopy 06/09/2018. Crohn's ileocolitis with fistulous disease and secondary strict uring. Biopsies taken. HISTORY OF PRESENT ILLNESS: A pleasant 28-year-old female presents with diffuse abdominal pain for 6 days. It is described as crampy, sharp, aching, worse in the left lower quadrant. She has been con stipated the last prior days before admission. She had been taking dicyclomine and CBD chews for mauri n, which helped in the beginning but no longer effective. A month ago, she underwent lap cholecystec les for cholecystitis. She saw a merchandise director in the outpatient setting who scheduled a colon oscopy. CT in the emergency room here showed changes suggestive of Crohn disease. HOSPITAL COURSE BY PROBLEM: 1. Crohn's ileocolitis with fistula and stricture: This was confirmed by colonoscopy and path repor t. She was initially treated with IV steroids, now on a prolonged taper for several weeks. Continue . Follow up with Dr. Calderon. 2. Abdominal pain, much improved. 3. Anxiety: Previously on fluoxetine, but self discontinued because she said it made her feel crazy . Will provide her a few Ativan for the next couple days and start Lexapro. She should follow up wi th her PCP for up titration. 4. Rectal bleeding, likely hemorrhoids. H and H stable. 5. Thrombocytosis: Secondary to acute inflamed inflammation. This is trending down. DISPOSITION: Patient is stable for discharge home. NEW MEDICATIONS: 1. . 2. Prednisone taper. 3. Ativan. 4. Lexapro. FOLLOWUP: 1. Dr. Calderon. 2. PCP: Up titration of antianxiety medications. Discuss control options. TIME SPENT ON DISCHARGE: Greater than 30 minutes evaluating patient, reviewing notes and discussing followup plans. /[id number]/MODL
== END 2018-06-12 12:34 | disposition home or self-care (01) | DRG 387 ==
LOC: INTOOBSV 14:45 → F3E 16:20 → OBSVTOIN 06-10 10:55 → UNDODISIN 06-10 11:01
PROVIDERS: ADMIT Internal Medicine; ATTEND Internal Medicine
PROC: 0DBN8ZX Excision of Sigmoid Colon, Via Natural or Artificial Opening Endoscopic, Diagnostic (ICD-10-PCS; principal; 2018-06-10 09:30)
PROC: 0DBP8ZX Excision of Rectum, Via Natural or Artificial Opening Endoscopic, Diagnostic (ICD-10-PCS; principal; 2018-06-10 09:30)
DX: K50.013 Crohn's disease of small intestine with fistula (principal); K50.011 Crohn's disease of small intestine with rectal bleeding; F41.9 Anxiety disorder, unspecified; D47.3 Essential (hemorrhagic) thrombocythemia; K64.9 Unspecified hemorrhoids; E86.0 Dehydration
CPT/HCPCS: 96374; G0378; J1170; J1200; J1650; J2250; J2405; J2920; J2930; J3010; J7500; J7512; Q5103; Q9967